=== PATIENT | female | born 1940 | race American Indian/Alaskan Native ===

== ENCOUNTER 2017-12-09 09:51 | Outpatient (CLI) | payer MEDICARE ==
--- NOTE | 2017-12-09 10:40 | XRay Report ---
LUMBAR SPINE RADIOGRAPHS INDICATION: Low back pain. COMPARISON: None similar at this institution. FINDINGS: AP, lateral and oblique lumbar spine radiographs, 5 images demonstrate osteopenia/osteoporosis with multilevel degenerative spurring. L4-L5 bilateral pedicle rods and screws noted with posterior decompression. Severe L4-L5 disc narrowing with possible disc calcifications and adjacent sclerosis. Approximately 4 mm retrolisthesis of L4 over L5 as well. Approximately 3 mm retrolisthesis of L1 on L2-L2 on L3 may also be noted. Disc narrowing also suspected as at L5-S1 with approximately 4 mm anterolisthesis of L5 over S1. Abdominal aortic atherosclerotic calcifications. Approximately 1.1 cm calcification may represent a right renal or conceivably a gallbladder stone. Bilateral gluteal probable calcified injection granulomas may measure up to 1.9 cm on the left. Intact SI joints. Clear visualized lung bases. Nonobstructive bowel gas pattern with ascending colon stool/possible constipation. CONCLUSION: 1. Multilevel lumbar and imaged thoracic spine degenerative changes and lower lumbar fusion hardware, as described. 2. Other findings, including demineralized bones and possible right nephrolithiasis. Thank you for the opportunity to participate in this patient's care.
== END 2017-12-09 09:52 | disposition home or self-care (01) ==
LOC: XRAY 09:51
PROVIDERS: ATTEND Nurse Practitioner
DX: M48.061 Spinal stenosis, lumbar region without neurogenic claudication (principal); M47.896 Other spondylosis, lumbar region; I70.0 Atherosclerosis of aorta; M81.0 Age-related osteoporosis without current pathological fracture; Z98.890 Other specified postprocedural states
CPT/HCPCS: 72110

== ENCOUNTER 2018-03-27 10:01 | Outpatient (CLI) | payer MEDICARE | END 2018-03-27 10:02 | disposition home or self-care (01) | LOC: VAS 10:01 | PROVIDERS: ATTEND Nurse Practitioner | DX: R60.0 Localized edema (principal); M79.661 Pain in right lower leg ==

== ENCOUNTER 2018-03-31 09:17 | Outpatient (CLI) | payer MEDICARE ==
[2018-03-31 11:52] LABS: Blood Urea Nitrogen 14 mg/dL (7-17)
--- NOTE | 2018-04-01 17:59 | Magnetic Resonance Report ---
FINAL REPORT EXAM: MR LUMBAR SPINE WO/W CON HISTORY: LOW BACK PAIN COMPARISON: None available. TECHNIQUE: Several multiplanar pre and post contrast sequences were obtained. IV contrast administered per institution protocol. Images submitted for interpretation. 15 cc MultiHance. FINDINGS: On the sagittal T1 postcontrast and sagittal T2 images, header information indicating type of exam and amount of contrast projects directly over L4 through S1 levels. This could obscure subtle abnormality. Lumbar vertebral body heights are preserved. Prior anterior and posterior fusion at the L4-L5 level with interbody graft and vertical fusion rods and pedicle screws. Prior decompressive laminectomy at that level. There appears to be good bony incorporation of the interbody graft by MRI. Grade 1 anterolisthesis of L4 on L5 by 8 millimeters due to facet changes and probable pars defects. Grade 1 anterolisthesis of L5 on S1 by 9-10 millimeters due to bilateral facet changes. No definite pars defects at that level by MRI. Wqgh-hp-[id number] loss of disc height L5-S1 level and minimal loss of disc height throughout the remainder of the lumbar spine. Minimal retrolisthesis of L3 on L4 by approximately 3 millimeters. No pathologic marrow process. No pathologic enhancement of lumbar vertebral bodies, conus, cauda equina nerve roots. Mild enhancement of the paraspinal musculature at the L4-L5 level posteriorly likely reactive secondary to fusion. Some this enhancement may be artifactual due to susceptibility artifact from the surgical hardware. There is expected enhancement of the spinal arteries. The axial images do not cross referenced with the sagittal images. This also limits evaluation. At the T11-T12 through L2-L3 levels, there appear to be minimal broad-based disc bulges. Mild facet changes. No significant canal stenosis at those levels. Mild bilateral foraminal narrowing at the L2-L3 level. No significant foraminal narrowing at the T11-T12 through L1-L2 levels. Small benign right-sided perineural root sleeve cysts within the T11-T12 and T12-L1 levels. L3-L4 level, there is a mild broad-based disc bulge endplate osteophyte as well as mild facet changes. Mild canal stenosis at that level. Moderate to severe foraminal narrowing, likely on the left. [id number] right foraminal narrowing. L4-L5 level, prior anterior-posterior fusion with decompressive laminectomy. Central canal is decompressed. Moderate to severe bilateral foraminal narrowing due to mild broad-based disc bulge and facet changes as well as loss of disc height at that level and anterolisthesis. L5-S1 level, there is uncovering of a broad-based disc bulge and anterolisthesis. Prominent facet changes at that level. There may been prior right hemilaminotomy at that level. Central canal is moderately narrowed due to facet changes. Severe bilateral foramina narrowing due to broad-based disc bulge and facet changes. IMPRESSION: Limitations to interpretation of this exam as described above. No pathologic enhancement lumbar vertebral bodies, conus, cauda equina nerve roots. Probable mild reactive enhancement of posterior paraspinal musculature at site of prior posterior fusion, laminectomy and anterior fusion at the L4-L5 level. Grade 1 anterolisthesis of L4 on L5 and L5 on S1 due to facet changes. There may be pars defects at the L4-L5 level. Central canal is decompressed at the L4-L5 level. Moderate to severe bilateral foramina ring at the L4-L5 and L5-S1 levels due to broad-based disc bulges and facet changes as well as loss of disc height and anterolisthesis. Moderate canal stenosis L5-S1 level due to prominent facet changes. [id number]-pjnutdvf degenerative changes throughout the remainder of the lumbar spine.
== END 2018-03-31 09:18 | disposition home or self-care (01) ==
LOC: MRI 09:17
PROVIDERS: ATTEND Orthopaedic Surgery
DX: M47.896 Other spondylosis, lumbar region (principal); M43.16 Spondylolisthesis, lumbar region; M51.26 Other intervertebral disc displacement, lumbar region; M48.07 Spinal stenosis, lumbosacral region; Z88.6 Allergy status to analgesic agent
CPT/HCPCS: 36415; 72158; 82565; 84520; A9577

== ENCOUNTER 2019-05-31 09:38 | Outpatient (CLI) | payer MEDICARE ==
[2019-05-31 11:16] LABS: Basophils # (Auto) 0.1 K/mm3 (0.0-0.1); Eosinophils # (Auto) 0.2 K/mm3 (0.0-0.4); Eosinophils % (Auto) 2.6 % (0.0-4.3); Hematocrit 34.8 % (30.3-42.9); Hemoglobin 11.9 gm/dl (10.1-14.3); Lymphocytes # (Auto) 2.7 K/mm3 (1.2-5.4); Lymphocytes % (Auto) 43.4 % (13.4-35.0); Mean Corpuscular HGB Conc 34 % (30-34); Mean Corpuscular Volume 95 fl (79-97); Monocytes # (Auto) 0.6 K/mm3 (0.0-0.8); Monocytes % (Auto) 9.4 % (0.0-7.3); Platelet Count 226 K/mm3 (140-440); Red Blood Count 3.68 M/mm3 (3.65-5.03); Red Cell Distribution Width 13.7 % (13.2-15.2)
[2019-05-31 11:29] LABS: Alanine Aminotransferase 7 units/L (7-56); Albumin 4.1 g/dL (3.9-5); BUN/Creatinine Ratio 24; Blood Urea Nitrogen 17 mg/dL (7-17); Calcium 8.6 mg/dL (8.4-10.2); Chol/HDL Ratio 5.97 %; HDL Cholesterol 40 mg/dL (40-59); Hemolysis Index 0; LDL Cholesterol,Direct 171 mg/dL (50-130)
[2019-06-03 13:46] LABS: Vitamin D, 25-OH, D2 <4 ng/mL
== END 2019-05-31 09:39 | disposition home or self-care (01) ==
LOC: LAB 09:38
PROVIDERS: ATTEND Internal Medicine
DX: Z00.00 Encounter for general adult medical examination without abnormal findings (principal); Z13.220 Encounter for screening for lipoid disorders; Z13.29 Encounter for screening for other suspected endocrine disorder; I10 Essential (primary) hypertension; R79.89 Other specified abnormal findings of blood chemistry
CPT/HCPCS: 36415; 80053; 80061; 82306; 82607; 83036; 84443; 85025

== ENCOUNTER 2021-01-01 13:59 | Outpatient (CLI) | payer MEDICARE ==
--- NOTE | 2021-01-01 15:47 | XRay Report ---
LEFT HIP 2 VIEWS INDICATION: LOW BACK PAIN. COMPARISON: None. IMPRESSION: Borderline to mild osteopenia is suspected. Lower lumbar fusion at L4-5 is noted. Mild osteoarthritic changes are identified at the left hip. No evidence for fracture, bone lesion or osteo necrosis. The soft tissues are unremarkable. Signer Name: Luis Borges Jr, MD Signed: 01/01/2021 3:42 PM Workstation Name: [id number]
--- NOTE | 2021-01-01 15:48 | XRay Report ---
XR spine lumbosacral 2-3V HISTORY: LOW BACK PAIN COMPARISON: None. TECHNIQUE: 3 view(s) of the spine obtained. FINDINGS: Stepwise minimal degenerative retrolisthesis of L1 on L2, L2 on L3, and L3 on L4. Anterolisthesis of L4-L5. Post operative changes from L4-5 posterior spinal interbody fusion.. Hardware is intact. No abnormal lucency surrounds hardware. Moderate multilevel spondylosis. Lower lumbar facet arthropathy. IMPRESSION: 1. Postoperative changes with intact hardware. Signer Name: Nelson Yao MD Signed: 01/01/2021 3:43 PM Workstation Name: [email or web address] [id number]
== END 2021-01-01 14:00 | disposition home or self-care (01) ==
LOC: XRAY 13:59
PROVIDERS: ATTEND Internal Medicine
DX: M47.816 Spondylosis without myelopathy or radiculopathy, lumbar region (principal); M12.88 Other specific arthropathies, not elsewhere classified, other specified site; M43.16 Spondylolisthesis, lumbar region; M16.12 Unilateral primary osteoarthritis, left hip
CPT/HCPCS: 72100

== ENCOUNTER 2022-02-12 11:21 | Outpatient (CLI) | payer MEDICARE ==
[2022-02-12 12:08] LABS: Basophils # (Auto) 0.1 K/mm3 (0.0-0.1); Basophils % (Auto) 0.8 % (0.0-1.8); Eosinophils # (Auto) 0.1 K/mm3 (0.0-0.4); Eosinophils % (Auto) 0.7 % (0.0-4.3); Hemoglobin 12.2 gm/dl (10.1-14.3); Lymphocytes # (Auto) 2.6 K/mm3 (1.2-5.4); Lymphocytes % (Auto) 34.8 % (13.4-35.0); Mean Corpuscular HGB Conc 34 % (30-34); Mean Corpuscular Volume 95 fl (79-97); Monocytes # (Auto) 0.7 K/mm3 (0.0-0.8); Monocytes % (Auto) 9.5 % (0.0-7.3); Platelet Count 253 K/mm3 (140-440); Red Blood Count 3.79 M/mm3 (3.65-5.03); Red Cell Distribution Width 14.1 % (13.2-15.2)
[2022-02-12 12:33] LABS: Alanine Aminotransferase 14 units/L (7-56); Albumin 4.3 g/dL (3.9-5); Blood Urea Nitrogen 17 mg/dL (7-17); Calcium 9.2 mg/dL (8.4-10.2); Chol/HDL Ratio 4.89 %; HDL Cholesterol 55 mg/dL (40-59); Hemolysis Index 4; LDL Cholesterol,Direct 199 mg/dL (50-130)
[2022-02-12 12:36] LABS: BUN/Creatinine Ratio 34
== END 2022-02-12 11:22 | disposition home or self-care (01) ==
LOC: LAB 11:21
PROVIDERS: ATTEND Internal Medicine
DX: C44.90 Unspecified malignant neoplasm of skin, unspecified (principal); I10 Essential (primary) hypertension; E78.5 Hyperlipidemia, unspecified; R73.09 Other abnormal glucose; Z00.00 Encounter for general adult medical examination without abnormal findings
CPT/HCPCS: 36415; 80053; 80061; 82306; 83036; 84443; 85025

== ENCOUNTER 2022-03-03 13:06 | Outpatient (CLI) | payer MEDICARE ==
--- NOTE | 2022-03-03 17:58 | Magnetic Resonance Report ---
MR lumbar spine wo con INDICATION / CLINICAL INFORMATION: 81 years Female; HX LUMBAR SURG.--BACK PAIN--LEFT LEG PAIN. TECHNIQUE: Multisequence, multiplanar images of the lumbar spine were obtained. COMPARISON: 03/31/2018 FINDINGS: POST-SURGICAL CHANGES: Bilateral intrapedicular screws seen at L4-5. Interbody grafts seen at this le shannon as well. Partial, bilateral hemilaminectomies seen at L4-5 and L5-S1. ALIGNMENT: Grade 1/2 listhesis is seen at L4-5 and L5-S1. VERTEBRAE:Grossly normal marrow signal and vertebral body height for age. VISUALIZED SPINAL CORD: No significant abnormality. Conus is grossly normal in appearance. INTERVERTEBRAL DISCS: Multilevel disc desiccation noted. [id number]-[id number] ANALYSIS: T12-L1: Minimal disc bulge and facet hypertrophy. L1-2: Mild disc bulge. L2-3: Mild disc bulge and facet hypertrophy. Small left foraminal/extra foraminal disc protrusion on the left. L3-4: Mild to moderate disc bulge. Tfcl-sz-wcailhjf facet hypertrophy. Moderate foraminal narrowing s een on the left with encroachment upon and borderline flattening of the left L3 nerve. Moderate noted on the right, without significant sequela. Similar findings seen on prior. L4-5: As above. No significant canal stenosis. Moderate osseous foraminal narrowing seen because the listhesis. Similar findings seen on prior. L5-S1: As above. High-grade foraminal narrowing seen bilaterally because the listhesis and pseudodisc disease, combined with facet hypertrophy. There is marked flattening of the exiting L5 nerves. Simil ar findings seen on prior. PARASPINAL SOFT TISSUES: No significant abnormality. ADDITIONAL FINDINGS: None. IMPRESSION: 1. Degenerative and postoperative changes of the lumbar spine as described above. Most marked finding s at nonoperative levels appear to be at L5-S1, followed by L3-4. Please correlate with dermatomal di stribution of patient's symptoms, if present. Signer Name: Adarsh Hyde MD, III Signed: 03/03/2022 5:54 PM Workstation Name: [email or web address]
== END 2022-03-03 13:07 | disposition home or self-care (01) ==
LOC: MRI 13:06
PROVIDERS: ATTEND Internal Medicine
DX: M51.35 Other intervertebral disc degeneration, thoracolumbar region (principal); M40.203 Unspecified kyphosis, cervicothoracic region; M48.05 Spinal stenosis, thoracolumbar region
CPT/HCPCS: 72148